=== PATIENT | male | born 1960 | race Caucasian/White ===

== ENCOUNTER 2022-02-16 17:27 | Emergency (ER) | payer OTHER ==
[2022-02-16 17:55] LABS: HEMOGLOBIN 9.3 gm/dl (14.0-17.5); RED BLOOD COUNT 3.06 M/UL (4.20-5.50); WHITE BLOOD COUNT 9.8 K/UL (4.5-11.0)
[2022-02-16 22:33] LABS: HEMOGLOBIN 9.9 gm/dl (14.0-17.5)
[2022-02-16 22:58] LABS: BUN/CREATININE RATIO 56 (0-10)
== END 2022-02-17 00:37 | disposition short-term general hospital (02) ==
LOC: ER1 17:27
PROVIDERS: Family Medicine; Physician Assistant
DX: K92.0 Hematemesis (principal); K92.1 Melena; E11.65 Type 2 diabetes mellitus with hyperglycemia; F15.90 Other stimulant use, unspecified, uncomplicated; N17.9 Acute kidney failure, unspecified; I95.9 Hypotension, unspecified; M54.9 Dorsalgia, unspecified; G89.29 Other chronic pain; I10 Essential (primary) hypertension; E11.40 Type 2 diabetes mellitus with diabetic neuropathy, unspecified; Z88.5 Allergy status to narcotic agent; Z20.822 Contact with and (suspected) exposure to COVID-19
CPT/HCPCS: 36430; 71045; 80048; 80053; 82272; 82550; 82553; 83605; 83690; 83880; 84484; 85014; 85018; 85025; 85610; 86850; 86900; 86901; 86920; 93005; 96361; 96365; 96366; 96374; 96375; 99285; C9113; J2405; P9016; U0002

== ENCOUNTER 2022-02-20 16:35 | Emergency (ER) | payer OTHER ==
[2022-02-20 17:05] LABS: HEMOGLOBIN 8.6 gm/dl (14.0-17.5); RED BLOOD COUNT 2.93 M/UL (4.20-5.50); WHITE BLOOD COUNT 9.9 K/UL (4.5-11.0)
[2022-02-20 17:27] LABS: BUN/CREATININE RATIO 20 (0-10)
[2022-02-20] MEDS ORDERED: BENTYL 20MG TAB20 MG PO (20:42)
[2022-02-20] MEDS ORDERED: ZOFRAN ODT 4 MG4 MG PO (20:42)
== END 2022-02-20 20:55 | disposition home or self-care (01) ==
LOC: ER1 16:35
PROVIDERS: Nurse Practitioner
DX: R10.84 Generalized abdominal pain (principal); E11.9 Type 2 diabetes mellitus without complications; I10 Essential (primary) hypertension; D64.9 Anemia, unspecified; Z88.5 Allergy status to narcotic agent; Z79.84 Long term (current) use of oral hypoglycemic drugs; Z79.899 Other long term (current) drug therapy; Z51.81 Encounter for therapeutic drug level monitoring
CPT/HCPCS: 70450; 71045; 80053; 80076; 80307; 81001; 82140; 82550; 82553; 83605; 83690; 84484; 85025; 85610; 85730; 86850; 86900; 86901; 87040; 96361; 96374; 99285; J2405; Q9967

== ENCOUNTER 2022-02-21 05:21 | Emergency (ER) | payer OTHER ==
[~2022-02-21 05:21] MED LIST: BENTYL 20MG TAB20 MG PO; ZOFRAN ODT 4 MG4 MG PO
[2022-02-21 05:49] LABS: RED BLOOD COUNT 2.04 M/UL (4.20-5.50); WHITE BLOOD COUNT 20.8 K/UL (4.5-11.0)
== END 2022-02-21 09:38 | disposition other institution (70) ==
LOC: ER1 05:21
PROVIDERS: Family Medicine
DX: K92.2 Gastrointestinal hemorrhage, unspecified (principal); I95.9 Hypotension, unspecified; E11.9 Type 2 diabetes mellitus without complications; I10 Essential (primary) hypertension; Z20.822 Contact with and (suspected) exposure to COVID-19
CPT/HCPCS: 31500; 36430; 36556; 36600; 43752; 51702; 71045; 74018; 80053; 81001; 82272; 82550; 82553; 82803; 82962; 83605; 84484; 85025; 85379; 85610; 86850; 86900; 86901; 86920; 86927; 87086; 92950; 94002; 94760; 99285; C9113; J0171; J2250; J7030; J7070; P9016; P9017; P9035; U0002